=== PATIENT | female | born 1945 | race Asian ===

== ENCOUNTER 2020-08-05 06:16 | Inpatient (IN) ==
[2020-08-05] MEDS ORDERED: Clindamycin 900 MG/50 ML 900 MG/50 ML IV.SOLN IVPB ONE (06:38)
[2020-08-05] MEDS ORDERED: Ringers Solution, Lactated 1,000 ML IVC SCH ×2 (06:45→12:09)
[2020-08-05] MEDS ORDERED: Lidocaine -MPF 2% 2 ML VIAL ONE (07:15)
[2020-08-05] MEDS ORDERED: Dexamethasone 4 MG/ML VIAL ONE (07:15)
[2020-08-05] MEDS ORDERED: Ondansetron 4 MG/2 ML VIAL ONE (07:15)
[2020-08-05] MEDS ORDERED: Famotidine 20 MG/2 ML VIAL IVP ONE (07:15)
[2020-08-05] MEDS ORDERED: *HR* Succinylcholine 200 MG/10 ML VIAL IVP ONE (07:15)
[2020-08-05] MEDS ORDERED: *HR* Rocuronium Bromide 50 MG/5 ML VIAL ONE (07:15)
[2020-08-05] MEDS ORDERED: Acetaminophen IV 1,000 MG/100 ML INFUS..BTL IVPB ONE ×2 (07:15→12:44)
[2020-08-05] MEDS ORDERED: Pregabalin 75 MG CAPSULE PO ONE (07:15)
[2020-08-05] MEDS ORDERED: Lidocaine HCL 4 ML Topical Solution (Laryng-O-Jet Kit Sterile Pak) TP ONE (07:15)
[2020-08-05] MEDS ORDERED: *HR* Propofol 200 MG/20 ML VIAL IVP ONE (07:17)
[2020-08-05] MEDS ORDERED: *HR* FentaNYL (PF) 100 MCG/2 ML VIAL ONE (07:17)
[2020-08-05] MEDS ORDERED: Bacitracin 50,000 UNIT, Polymyxin B Sulfate 500,000 UNIT, Sodium Chloride IRRigation 1,... IR ONE (07:45)
[2020-08-05] MEDS ORDERED: *HR* OxyCODONE Immed Rel 5 MG TABLET PO PRN ×2 (08:09→12:09)
[2020-08-05] MEDS ORDERED: *HR* Promethazine 25 MG/ML VIAL IVP PRN (08:09)
[2020-08-05] MEDS ORDERED: Ondansetron 4 MG/2 ML VIAL IVP PRN ×2 (08:09→12:09)
[2020-08-05] MEDS ORDERED: *HR* Labetalol 20 MG/4 ML SYRINGE IVP PRN (08:09)
[2020-08-05] MEDS ORDERED: *HR* HYDROMORPHONE 2 MG/ML VIAL ONE (08:39)
[2020-08-05] MEDS: *HR* HYDROmorphone PF 0.5 MG/0.5 ML SYRINGE IVP PRN ×2 (11:09→11:16)
[2020-08-05] MEDS ORDERED: Naloxone 0.4 MG/ML INJ IVP PRN (12:09)
[2020-08-05] MEDS: Pregabalin 75 MG CAPSULE PO SCH ×2 (13:56→20:21)
[2020-08-05] MEDS ORDERED: Ketorolac 30 MG/ML VIAL IVP ONE (14:37)
[2020-08-05] MEDS: Clindamycin 900 MG/50 ML 900 MG/50 ML IV.SOLN IVPB SCH ×2 (17:25→23:53)
[2020-08-05] MEDS: Acetaminophen 325 MG TABLET PO PRN (20:21)
[2020-08-06] MEDS: *HR* HYDROcodone/Acet 5/325 mg TABLET PO PRN ×3 (05:30→17:05)
[2020-08-06] MEDS: Pregabalin 75 MG CAPSULE PO SCH ×3 (07:46→19:57)
[2020-08-06] MEDS: Loratadine 10 MG TABLET PO SCH (07:46)
[2020-08-06] MEDS: Vitamin E 200 UNIT (90MG) CAPSULE PO SCH (07:46)
[2020-08-06] MEDS: Anastrozole 1 MG TABLET PO SCH (07:46)
[2020-08-06] MEDS: Cholecalciferol (D-3) 1,000 UNIT (25MCG) TABLET PO SCH (07:46)
[2020-08-06] MEDS: Furosemide 20 MG TABLET PO SCH (07:46)
[2020-08-06] MEDS: Multivit/Ca/Min/Fe/FA 1 TAB TABLET PO SCH (07:46)
[2020-08-06] MEDS: (Ezetimibe [Zetia] 10 MG) PO SCH (07:47)
[2020-08-06] MEDS: Acetaminophen 325 MG TABLET PO PRN ×2 (07:58→21:15)
[2020-08-07] MEDS: *HR* HYDROcodone/Acet 5/325 mg TABLET PO PRN ×3 (02:50→16:02)
[2020-08-07] MEDS: Furosemide 20 MG TABLET PO SCH (07:31)
[2020-08-07] MEDS: Pregabalin 75 MG CAPSULE PO SCH ×3 (07:31→21:25)
[2020-08-07] MEDS: Vitamin E 200 UNIT (90MG) CAPSULE PO SCH (07:31)
[2020-08-07] MEDS: Cholecalciferol (D-3) 1,000 UNIT (25MCG) TABLET PO SCH (07:31)
[2020-08-07] MEDS: Anastrozole 1 MG TABLET PO SCH (07:31)
[2020-08-07] MEDS: Loratadine 10 MG TABLET PO SCH (07:31)
[2020-08-07] MEDS: (Ezetimibe [Zetia] 10 MG) PO SCH (07:32)
[2020-08-07] MEDS: Multivit/Ca/Min/Fe/FA 1 TAB TABLET PO SCH (07:32)
[2020-08-07] MEDS: Acetaminophen 325 MG TABLET PO PRN (15:14)
[2020-08-08] MEDS: *HR* HYDROcodone/Acet 5/325 mg TABLET PO PRN ×2 (00:21→15:33)
[2020-08-08] MEDS: Acetaminophen 325 MG TABLET PO PRN (03:33)
[2020-08-08] MEDS: *HR* OxyCODONE Immed Rel 5 MG TABLET PO PRN ×2 (05:09→11:33)
[2020-08-08 07:08] VITALS: BP 108/68
[2020-08-08] MEDS: Pregabalin 75 MG CAPSULE PO SCH (09:54)
[2020-08-08] MEDS: Anastrozole 1 MG TABLET PO SCH (09:54)
[2020-08-08] MEDS: Multivit/Ca/Min/Fe/FA 1 TAB TABLET PO SCH (09:55)
[2020-08-08] MEDS: Loratadine 10 MG TABLET PO SCH (09:55)
[2020-08-08] MEDS: Vitamin E 200 UNIT (90MG) CAPSULE PO SCH (09:55)
[2020-08-08] MEDS: Furosemide 20 MG TABLET PO SCH (09:55)
[2020-08-08] MEDS: Cholecalciferol (D-3) 1,000 UNIT (25MCG) TABLET PO SCH (09:55)
[2020-08-08] MEDS: (Ezetimibe [Zetia] 10 MG) PO SCH (10:07)
== END 2020-08-08 16:05 | disposition home health service (06) | DRG 455 ==
LOC: SAMDAY 06:16 → 3NENU 06:16
PROVIDERS: ADMIT Orthopaedic Surgery Orthopaedic Surgery of the Spine; ATTEND Orthopaedic Surgery Orthopaedic Surgery of the Spine